=== PATIENT | female | born 1980 | race Caucasian/White ===

== ENCOUNTER 2022-01-21 11:04 | Emergency (ER) | payer OTHER ==
[2022-01-21] MEDS ORDERED: Sodium Chloride 0.9% 10 ML Syringe FLUSH PRN (11:24)
[2022-01-21] MEDS ORDERED: Sodium Chloride 0.9% 1,000 ML IV ONE (11:31)
== END 2022-01-21 13:02 | disposition home or self-care (01) ==
LOC: DL.ED 11:04
DX: R00.2 Palpitations (principal); Z91.048 Other nonmedicinal substance allergy status
CPT/HCPCS: 36415; 71045; 80053; 83735; 83880; 84443; 84484; 85025; 85610; 85730; 93005; 96360; 99285; J7030